=== PATIENT | male | born 1960 | race Caucasian/White ===

== ENCOUNTER → 2016-10-07 | Outpatient (CLI) | payer OTHER ==
--- NOTE | 2016-10-07 14:46 | DX ---
Chest, PA and Lateral, 222 p.m. History: Cough, patient states "feels like when I had pneumonia" Findings: Perihilar bronchial wall thickening is chronic or recurrent since February 2006, April 2007 and May 2012. There is no focal infiltrate or consolidation. Heart size is normal. There is no a denopathy or mass lesion. There is no pleural effusion . A mild thoracic scoliosis is stable. Impression: Chronic or recurrent airways disease. Results reviewed with Dr. David Arias at 245 p.m.
== END ==
LOC: BMCIMAGING 14:20
PROVIDERS: ATTEND Emergency Medicine
DX: J44.9 Chronic obstructive pulmonary disease, unspecified (principal)